=== PATIENT | female | born 1965 | race Caucasian/White ===

== ENCOUNTER → 2016-11-29 | Outpatient (CLI) | payer OTHER ==
[~2016-11-29] MED LIST: BUPIVACAINE MPF 0.25% 10 ML VIAL. ONE; CHOL500016 PO; LACT1CAP6 PO; MELO15TA23 PO; OMEG1CAP6 PO; methylPREDNISolone ACETATE 40 MG/ML VIAL. ONE
== END | disposition home or self-care (01) ==
LOC: PNCL 07:50
PROVIDERS: ATTEND Anesthesiology
DX: S43.205A Unspecified dislocation of left sternoclavicular joint, initial encounter (principal); M19.90 Unspecified osteoarthritis, unspecified site; E78.00 Pure hypercholesterolemia, unspecified; Y99.9 Unspecified external cause status; Y92.89 Other specified places as the place of occurrence of the external cause; Y93.89 Activity, other specified; X58.XXXA Exposure to other specified factors, initial encounter
CPT/HCPCS: 20600; J1030; J3490

== ENCOUNTER → 2020-01-27 | Outpatient (CLI) | payer BC ==
[~2020-01-27] MED LIST changes: -BUPIVACAINE MPF 0.25% 10 ML VIAL. ONE; +IOHEXOL 180 MG/ML 10 ML VIAL. ONE; +methylPREDNISolone ACETATE 80 MG/ML VIAL. ONE
--- NOTE | 2020-01-27 13:11 | PDOC2 ---
INITIAL PAIN CONSULT DATE OF SERVICE: DOS: DATE: 01/27/20 TIME: 13:01 CHIEF COMPLAINT: Chief Complaint: Neck and upper back right shoulder pain HISTORY OF PRESENT ILLNESS: 54-year-old female presents with history of pain base the neck and shoulder especially on the right side for about 1 year. Not as well as any specific injury or accident that she is aware of. Patient reports it is a burning sensation radiating to the right base of the shoulder and base of the neck tingling with numbness sharp stabbing can be constant worse with activity, worse with reaching over her head with her right hand wakes her from sleep several times a night patient reports does not affect her bowel bladder control or her ability to walk. Patient's been taking meloxicam which does help only mildly also tried Flexeril was not helpful. Patient has had trigger point junction as well as chiropractic treatment and exercise which were helpful temporarily in physical therapy which was not significantly helpful. These were all within the last 1 year reports no loss of motor function but significant fatigability to right shoulder with any activity. Did have MRI scan of the cervical and t horacic spines showing multilevel degenerative disc disease generalized bulges T4-T12 mild multilevel central canal stenosis with severe C6-T1 and moderate to severe C5-6 degenerative disc disease mild to moderate degenerative disc disease and lumbar spine as well. Patient rates her pain is a 4 on a scale of 10 with family home responsibilities 5 with recreation 0 social activity 2 with occupation for sexual behavior 0 self-care and 7-8 with life support activity especially sleeping. PAST MEDICAL HISTORY: PMH: Arthritis, irritable bowel syndrome, cigarette smoking PREVIOUS SURGERIES: Past Surgical Hx: Left knee surgery, I&D, pneumothorax CURRENT MEDICATIONS: Current Meds: Active Scripts Medications Dose Route/Sig Max Daily Dose Days Date Category Meloxicam 15 Mg Tablet 1 Tab PO DAILY 11/29/16 Reported Vitamin D3 (Cholecalciferol (Vitamin D3)) 5,000 Unit Tablet 1 Tab PO DAILY 11/29/16 Reported Probiotic (Lactobacillus Acidophilus) 1 Each Capsule 1 Each PO DAILY 11/29/16 Reported Fish Oil 1,000 Mg Capsule (Makinen-3 Fatty Acids/Fish Oil) 1 Each Capsule 2 Each PO DAILY 11/29/16 Reported ALLERGIES; Allergies: Coded Allergies: No Known Drug Allergies (Unverified , 11/29/16) FAMILY HISTORY: Family Hx: Multiple sclerosis, colon cancer SOCIAL HISTORY: Social Hx: Patient drinks alcohol 1-3 times a week smokes less than a pack a day for the past 25 years does not use any illegal illicit or recreational drugs is lives with her spouse lives locally in [facility] REVIEW OF SYSTEMS: ROS: Positive for those items mentioned in his present illness all systems reviewed otherwise negative complete full well-documented on patient's chart. PHYSICAL EXAM: VS: Blood pressure 121/69 pulse 66 respirations 18 temperature 98.1 F height 5 feet 9 inches weight 156 pounds PE: PHYSICAL EXAMINATION: GENERAL: The patient is awake, alert, oriented, appropriate, very pleasant demeanor HEENT: Shows normocephalic, atraumatic. Extraocular movements are intact and symmetrical. Oral cavity: Mucous membranes moist and pink. Dentition is intact. NECK: Shows anterior throat supple without palpable lymphadenopathy noted. Swallow reflex symmetrical. CHEST: Shows normal on inspection. Breath sounds are clear bilaterally. HEART: Shows S1, S2 clear. No murmurs auscultated. ABDOMEN: Soft, nontender, nondistended. No palpable organomegaly is noted. No rebound or guarding demonstrated. BACK: Shows spine grossly in the midline. Normal-appearing cervical lordotic curvature, neck shows full rotation of motion cervical spine both laterally greater than 45 degrees closer to 90 degrees with full extension full forward flexion without significant increased pain paraspinous muscles show symmetrical with inspection on palpation some moderate tenderness diffusely in the inferior aspect the cervical paraspinous posterior as well as superior medial trapezius slightly more on the right than the left but present bilaterally without specific trigger points atrophy hypertrophy or asymmetry.. There is slightly increased thoracic kyphosis, some minor flattening of the lumbar lordotic curvature. Lumbar paraspinous muscles show symmetrical on inspection, on palpation, is without radiation of pain. The patient has good rotational motion of the lumbar spine, both laterally as well as extension and flexion without significant difficulty. No tenderness over the spinous processes, sacrum or sacroiliac regions. EXTREMITIES: Upper extremities show deep tendon reflexes 2+ in the biceps and tricep tendons. Motor exam is 5 on a scale of 5 with right shareholder strength, biceps and triceps flexion and 5/5 on the left. Peripheral pulses are 2+ radial. No peripheral edema is noted bilaterally. Upper extremities are warm and dry to touch, equal in color and appearance.The patient is able to raise her hands above her head without significant difficulty shows good strength with shoulder shrug without loss of strength on resistance as is abduction of the shoulder 90 degrees without loss of strength on resistance but with some moderate pain in the base of the neck and the right shoulder. SKIN: Shows warm and dry, good turgor. No edema. No sores, rashes or bruising throughout. IMPRESSION: Impression: 54-year-old female with approximate 1 year history lower cervical upper thoracic radiculopathy worse on the right than the left. MRI scan cervical and thoracic spines is noted. Arthritis Hearing loss Cigarette smoking Irritable bowel syndrome Options were discussed with the patient patient spouse who accompanied her to her visit today. We discussed conservative medical management physical therapies and interventional techniques. Patient like to proceed and vaginal techniques. We discussed a cervical epidural surgery description as well as anatomical models to describe the procedure. Risks are then discussed including but not limited to bleeding infection possibility of epidural hematoma subsequent neurological compromise dural puncture headache spinal cord and or nerve damage side effects of steroid medication for those chronic pain control. Patient understands wished to proceed. Patient return to clinic in approximately 2 weeks for follow-up was counseled as to return appointment activity level and side effects to be aware of. Procedure cervical epidural steroid injection at the C7-T1 level, using local anesthetic under sterile prep and drape using C-arm fluoroscopic guidance under local anesthesia medications injected ; 120 mg Depo-Medrol + 5 mL normal sa line and 2 mL contrast; condition at discharge is stable patient tolerated procedure well. and had no complications ELENA MCINTOSH MD Jan 27, 2020 13:10
== END | disposition home or self-care (01) ==
LOC: PNCL 09:14
PROVIDERS: ATTEND Anesthesiology
DX: M54.2 Cervicalgia (principal); M25.511 Pain in right shoulder; K58.8 Other irritable bowel syndrome; M19.90 Unspecified osteoarthritis, unspecified site; Z87.891 Personal history of nicotine dependence; Z98.890 Other specified postprocedural states; Z80.0 Family history of malignant neoplasm of digestive organs; Z79.899 Other long term (current) drug therapy
CPT/HCPCS: 62321; J1030; J1040; Q9965